=== PATIENT | male | born 1980 | race African-American/Black ===

== ENCOUNTER 2019-04-28 09:10 | Emergency (ER) | payer MEDICAID ==
[~2019-04-28] VITALS: Ht 170.2 cm; Wt 66.0 kg
[2019-04-28 10:50] VITALS: BP 115/60
[2019-04-28] MEDS ORDERED: MAGNESIUM CITRATE 300ML SOLUTION PO ONE (11:00)
[2019-04-28] MEDS ORDERED: LACTULOSE 20G/30ML UDC PO ONE (11:00)
[2019-04-28] MEDS ORDERED: MINERAL OIL 30ML BOTTLE PO ONE (11:00)
[2019-04-28] MEDS ORDERED: POLYETHYLENE GLYCOL-ELECTROLYTE 4000ML PO ONE (12:30)
== END 2019-04-28 14:12 | disposition home or self-care (01) ==
LOC: ER 09:10
DX: K59.00 Constipation, unspecified (principal); R03.0 Elevated blood-pressure reading, without diagnosis of hypertension
CPT/HCPCS: 74018; 99284

== ENCOUNTER 2022-04-03 08:23 | Emergency (ER) | payer MEDICAID ==
[~2022-04-03] VITALS: Ht 170.2 cm; Wt 68.0 kg
[2022-04-03 08:33] VITALS: BP 137/87
[2022-04-03] MEDS ORDERED: ONDANSETRON 4MG ODT PO STA (09:13)
[2022-04-03 09:57] LABS: BASOPHILS % 0.5 % (0.0-2.0); EOSINOPHILS % 0.9 % (0.0-5.0); HEMATOCRIT. 42.5 % (42.0-52.0); HEMOGLOBIN. 14.4 g/dL (14.0-18.0); MEAN CORPUSCULAR VOLUME 91.5 fL (80.0-94.0); MEAN PLATELET VOLUME 7.4 fl (7.4-10.4); NEUTROPHILS % 85.6 % (40.0-76.0); PLATELET 276 x1000/uL (130-400); RED BLOOD CELL COUNT 4.64 mill/uL (4.7-6.1); RED CELL DISTRIBUTION WIDTH 13.8 % (11.6-14.6)
[2022-04-03 10:01] LABS: CHLORIDE 104 mEq/L (98-107)
[2022-04-03] MEDS ORDERED: METR-167 MT (11:13)
[2022-04-03] MEDS ORDERED: CIPR-263 MT (11:13)
== END 2022-04-03 13:32 | disposition home or self-care (01) ==
LOC: ER 08:23
DX: K52.9 Noninfective gastroenteritis and colitis, unspecified (principal)
CPT/HCPCS: 36415; 74176; 80053; 83690; 85025; 99284; Q0162

== ENCOUNTER 2022-11-24 14:23 | Emergency (ER) | payer MEDICAID, OTHER ==
[~2022-11-24] VITALS: Ht 170.2 cm; Wt 63.5 kg
[~2022-11-24 14:23] MED LIST: CIPR-263 MT; METR-167 MT
[2022-11-24 14:46] VITALS: O2SAT 100
[2022-11-24] MEDS ORDERED: KETOROLAC 60MG/2ML VIAL IM ONE (18:00)
[2022-11-24] MEDS ORDERED: ONDANSETRON 4MG ODT PO ONE (18:15)
[2022-11-24] MEDS ORDERED: IBUP-2028 MT (20:06)
[2022-11-24 21:11] VITALS: BP 145/93; PULSE 70; RESP 18; TEMP 98.4
== END 2022-11-24 21:12 | disposition home or self-care (01) ==
LOC: ER 14:23
DX: R51.9 Headache, unspecified (principal); M79.10 Myalgia, unspecified site; F12.10 Cannabis abuse, uncomplicated
CPT/HCPCS: 99283; 96372; Q0162; J1885